=== PATIENT | male | born 1965 | race Caucasian/White ===

== ENCOUNTER 2016-04-14 16:20 | Emergency (ER) | payer BC ==
[~2016-04-14] VITALS: Ht 185.4 cm; Wt 95.5 kg
[2016-04-14 16:23] VITALS: BP 145/91; TEMP 99
[2016-04-14 18:07] VITALS: PULSE 76
== END 2016-04-14 18:10 | disposition home or self-care (01) ==
LOC: COL.ER 16:20
DX: S93.401A Sprain of unspecified ligament of right ankle, initial encounter (principal); W23.0XXA Caught, crushed, jammed, or pinched between moving objects, initial encounter; W18.39XA Other fall on same level, initial encounter